=== PATIENT | female | born 1975 | race Caucasian/White ===

== ENCOUNTER → 2019-11-07 | Outpatient (CLI) | payer MEDICARE ==
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
== END ==
LOC: DXRAD 11:58
PROVIDERS: ATTEND Specialist
DX: M54.2 Cervicalgia (principal)
CPT/HCPCS: 72040